=== PATIENT | female | born 1985 | race African-American/Black ===

== ENCOUNTER 2021-08-25 20:12 | Emergency (ER) | payer OTHER ==
[2021-08-25 20:20] VITALS: BMI 31.8
[2021-08-25 21:43] LABS: THROAT:GRP A STREP NOT DETECTED (NOTDETECTED)
[2021-08-25 22:53] LABS: SARS COV-2 MOLECULAR Negative (Negative)
[2021-08-25 23:11] VITALS: BP 116/71; PULSE 97; TEMP 98.2
== END 2021-08-25 23:35 | disposition home or self-care (01) ==
LOC: JER 20:12
DX: J02.9 Acute pharyngitis, unspecified (principal); R09.81 Nasal congestion; Z3A.33 33 weeks gestation of pregnancy
CPT/HCPCS: 87651; 99283-25; C9803; U0003; U0005

== ENCOUNTER 2021-09-06 14:41 | Emergency (ER) | payer OTHER ==
[2021-09-06 14:50] VITALS: TEMP 97.7; BMI 31.8
[2021-09-06] MEDS ORDERED: SODIUM CHLORIDE 0.9% 500 ML INFUS.BAG IV ONE ×2 (16:34→19:53)
[2021-09-06 17:12] LABS: BASO % 0.2 % (0-2.0); EOS % 1.6 % (0-4.5); HEMATOCRIT 32.8 % (32.4-45.2); LYMPH % 23.5 % (8-40); MCH 28.5 pg (25.7-33.7); MCHC 33.5 g/dl (32.0-36.0); MEAN CELL VOLUME 85.1 fl (80-96); MEAN PLT VOLUME 9.7 fl (7.5-11.1); MONO % 14.9 % (3.8-10.2); NEUT % 59.8 % (42.8-82.8); PLATELET COUNT 241 10^3/uL (134-434); RBC 3.86 M/mm3 (3.60-5.2); RDW 14.1 % (11.6-15.6)
[2021-09-06 17:26] LABS: CHLORIDE 106 mmol/L (98-107); SODIUM 137 mmol/L (136-145)
[2021-09-06 17:28] LABS: ALBUMIN 2.9 g/dl (3.4-5.0); ANION GAP 9 MMOL/L (8-16); CALCIUM 8.7 mg/dL (8.5-10.1); CO2 22 mmol/L (21-32)
[2021-09-06 17:29] LABS: BLOOD UREA NITROGEN 5.8 mg/dL (7-18); GLUCOSE,RANDOM 70 mg/dL (74-106)
[2021-09-06 17:32] LABS: CREATININE 0.4 mg/dL (0.55-1.3); SGOT/AST 18 U/L (15-37); SGPT/ALT 14 U/L (13-61)
[2021-09-06 17:33] LABS: BILIRUBIN,TOTAL 0.4 mg/dL (0.2-1); TOT PROT 6.7 g/dl (6.4-8.2)
[2021-09-06 17:34] LABS: ALK PHOS 122 U/L (45-117)
[2021-09-06 18:36] LABS: URINE APPEARANCE CLEAR; URINE BILIRUBIN NEGATIVE (NEGATIVE); URINE COLOR YELLOW; URINE GLUCOSE (UA) NEGATIVE (NEGATIVE); URINE KETONE 3+ (NEGATIVE); URINE LEUK ESTERASE NEGATIVE (NEGATIVE); URINE NITRITE NEGATIVE (NEGATIVE); URINE PROTEIN NEGATIVE (NEGATIVE)
[2021-09-06 20:58] VITALS: BP 111/66; PULSE 97
== END 2021-09-06 23:04 | disposition home or self-care (01) ==
LOC: JER 14:41
DX: O26.893 Other specified pregnancy related conditions, third trimester (principal); R00.2 Palpitations; R06.02 Shortness of breath; R51.9 Headache, unspecified; Z3A.36 36 weeks gestation of pregnancy
CPT/HCPCS: 36415; 80053; 81003; 82550; 84443; 84484; 85025; 87086; 93005; 93010; 93970-TC; 99285-25; C9803; U0003; U0005